=== PATIENT | male | born 1975 | race Caucasian/White ===

== ENCOUNTER 2017-10-23 00:24 | Emergency (ER) | payer BC ==
[~2017-10-23] VITALS: Ht 172.7 cm; Wt 92.0 kg
[~2017-10-23 00:24] MED LIST: BENZ100 PO; HYDR-2768 PO; METO100T PO; PRED20 PO; Z.0.NO CURRENT MEDS
[2017-10-23 00:26] VITALS: BP 137/74; PULSE 96; RESP 16; TEMP 98.3; O2SAT 99
--- NOTE | 2017-10-23 01:07 | RADRPT ---
EXAM DATE/TIME: 10/23/2017 00:56 [facility] COMPARISON: No previous studies available for comparison. INDICATIONS : Cough. MEDICAL HISTORY : None. SURGICAL HISTORY : Kidney transplant. ENCOUNTER: Initial ACUITY: 4 - 6 days PAIN SCORE: 0/10 LOCATION: Bilateral chest FINDINGS: PA and lateral views of the chest demonstrate the lungs to be symmetrically aerated without evidence of mass, infiltrate or effusion. The cardiomediastinal contours are unremarkable. Osseous structure s are intact. CONCLUSION: No acute disease. There is no evidence of pneumonia. Harry Ahn MD on October 23, 2017 at 1:06 Board Certified Radiologist. This report was verified electronically.
[2017-10-23 02:14] LABS: AUTOMATED NEUTROPHIL # 6.5 TH/MM3 (1.8-7.7); BASOPHIL % 0.4 % (0.0-2.0); EOSINOPHIL # 0.1 TH/MM3 (0-0.4); EOSINOPHIL % 1.1 % (0.0-4.0); HEMATOCRIT 41.5 % (39.0-51.0); HEMO FLAGS DIFF FINAL; LYMPH % 11.7 % (9.0-44.0); MEAN CELL VOLUME 85.8 FL (80.0-100.0); MEAN CORPUSCULAR HEMOGLOBIN 28.9 PG (27.0-34.0); MEAN CORPUSCULAR HGB CONC 33.7 % (32.0-36.0); NEUT % 79.8 % (16.0-70.0); PLATELET COUNT 278 TH/MM3 (150-450); RED BLOOD COUNT 4.83 MIL/MM3 (4.50-5.90); RED CELL DISTRIBUTION WIDTH 15.1 % (11.6-17.2); WHITE BLOOD COUNT 8.2 TH/MM3 (4.0-11.0)
[2017-10-23 02:16] LABS: ANION GAP 11 MEQ/L (5-15); AST (GOT) 17 U/L (15-37); BICARBONATE 24.5 MEQ/L (21.0-32.0); BLOOD UREA NITROGEN 20 MG/DL (7-18); CHLORIDE 103 MEQ/L (98-107); GLOMERULAR FILTRATION RATE 80 ML/MIN (>89); POTASSIUM 3.8 MEQ/L (3.5-5.1); SODIUM (NA) 138 MEQ/L (136-145)
[2017-10-23 02:17] LABS: ALT (GPT) 38 U/L (12-78)
[2017-10-23 02:20] LABS: ALKALINE PHOSPHATASE 83 U/L (45-117); TOTAL BILIRUBIN ADULT 0.7 MG/DL (0.2-1.0)
--- NOTE | 2017-10-23 02:49 | PD ---
HPI Chief Complaint: Cold / Flu Symptoms Time Seen by Provider: 00:44 Travel History International Travel<30 days: No Contact w/Intl Traveler<30days: No History of Present Illness HPI Patient is a 42-year-old male, with history of renal transplant, comes in complaining of congestion as well as feeling hot and cold. He says his been going on for the past 4 days. He says he wanted to just come in and make sure you didn't have pneumonia. He is concerned about everything affecting his kidney transplant. He says he is producing urine normally. He says his temperature was 99.5 this evening. He says he cannot take any medications other than Tylenol. He does report compliance with his antirejection medications. [facility] Past Medical History Renal Failure: Yes Past Surgical History Genitourinary Surgery: Yes (DOUBLE KIDNEY TRANSPLANT 2013) Social History Alcohol Use: No Tobacco Use: No Substance Use: No Allergies-Medications (Allergen,Severity, Reaction): Coded Allergies: No Known Allergies (Verified Adverse Reaction, Unknown, 10/23/17) Reported Meds & Prescriptions Reported Meds & Active Scripts Active Review of Systems Except as stated in HPI: all other systems reviewed are Neg General / Constitutional: Positive: Fever, Chills HENT: Positive: Congestion, No: Headaches, Neck Stiffness Cardiovascular: No: Chest Pain or Discomfort Respiratory: Positive: Cough, No: Shortness of Breath Gastrointestinal: No: Nausea, Vomiting Musculoskeletal: No: Myalgias Skin: No Rash, No Change in Pigmentation Neurologic: No: Weakness, Dizziness Physical Exam Narrative GENERAL: Awake and alert, in no acute distress. SKIN: Focused skin assessment warm/dry. HEAD: Atraumatic. Normocephalic. EYES: Pupils equal and round. No scleral icterus. ENT: Mucous membranes pink and moist. NECK: Trachea midline. No JVD. CARDIOVASCULAR: Regular rate and rhythm. No murmur appreciated. RESPIRATORY: No accessory muscle use. Clear to auscultation. Breath sounds equal bilaterally. GASTROINTESTINAL: Abdomen soft, non-tender, nondistended. MUSCULOSKELETAL: No obvious deformities. No clubbing. No cyanosis. No edema. NEUROLOGICAL: Awake and alert. No obvious cranial nerve deficits. Motor grossly within normal limits. Normal speech. PSYCHIATRIC: Appropriate mood and affect; insight and judgment normal. Data Data Last Documented VS Vital Signs Date Time Temp Pulse Resp B/P (MAP) Pulse Ox O2 Delivery O2 Flow Rate FiO2 10/23/17 00:26 98.3 96 16 137/74 (95) 99 Room Air Orders Orders Chest, Pa & Lat (10/23/17 ) Iv Access Insert/Monitor (10/23/17 00:49) Complete Blood Count With Diff (10/23/17 00:49) Comprehensive Metabolic Panel (10/23/17 00:49) Influenzae A/B Antigen (10/23/17 00:49) Group A Rapid Strep Screen (10/23/17 00:49) Strep Culture (Group A) (10/23/17 01:40) Labs Laboratory Tests Test 10/23/17 01:50 White Blood Count 8.2 TH/MM3 Red Blood Count 4.83 MIL/MM3 Hemoglobin 14.0 GM/DL Hematocrit 41.5 % Mean Corpuscular Volume 85.8 FL Mean Corpuscular Hemoglobin 28.9 PG Mean Corpuscular Hemoglobin Concent 33.7 % Red Cell Distribution Width 15.1 % Platelet Count 278 TH/MM3 Mean Platelet Volume 7.1 FL Neutrophils (%) (Auto) 79.8 % Lymphocytes (%) (Auto) 11.7 % Monocytes (%) (Auto) 7.0 % Eosinophils (%) (Auto) 1.1 % Basophils (%) (Auto) 0.4 % Neutrophils # (Auto) 6.5 TH/MM3 Lymphocytes # (Auto) 1.0 TH/MM3 Monocytes # (Auto) 0.6 TH/MM3 Eosinophils # (Auto) 0.1 TH/MM3 Basophils # (Auto) 0.0 TH/MM3 CBC Comment DIFF FINAL Differential Comment Blood Urea Nitrogen 20 MG/DL Creatinine 1.02 MG/DL Random Glucose 88 MG/DL Total Protein 7.9 GM/DL Albumin 4.1 GM/DL Calcium Level 9.5 MG/DL Alkaline Phosphatase 83 U/L Aspartate Amino Transf (AST/SGOT) 17 U/L Alanine Aminotransferase (ALT/SGPT) 38 U/L Total Bilirubin 0.7 MG/DL Sodium Level 138 MEQ/L Potassium Level 3.8 MEQ/L Chloride Level 103 MEQ/L Carbon Dioxide Level 24.5 MEQ/L Anion Gap 11 MEQ/L Estimat Glomerular Filtration Rate 80 ML/MIN MDM Medical Decision Making Medical Screen Exam Complete: Yes Emergency Medical Condition: Yes Medical Record Reviewed: Yes Differential Diagnosis URI versus influenza versus pharyngitis versus pneumonia Narrative Course Patient is a 42-year-old male comes in complaining of congestion and possible fever. He is afebrile here. Exam shows no acute abnormalities. IV established , labs sent. Labs are within normal limits, creatinine is 1.02. Chest x-ray performed shows no evidence of pneumonia. Rapid strep test is negative. Influenza screen is negative. Patient advised of the results. Advised she should speak with his doctor about decongestants he can take for symptomatic relief. Advised follow-up with his doctors. Advised to return to the ED as needed for any worsening symptoms. Diagnosis Primary Impression: URI (upper respiratory infection) Qualified Codes: J06.9 - Acute upper respiratory infection, unspecified; B97.89 - Other viral agents as the cause of diseases classified elsewhere Patient Instructions: General Instructions, Upper Respiratory Infection (ED) Additional Instructions: Follow-up with your doctors. Take Tylenol as needed for fever. Return to the ED as needed for any worsening symptoms. Disposition: 01 DISCHARGE HOME Condition: Stable Hue Riggs MD Oct 23, 2017 02:49
== END 2017-10-23 03:20 | disposition home or self-care (01) ==
LOC: NEPC 00:24
DX: J06.9 Acute upper respiratory infection, unspecified (principal); B97.89 Other viral agents as the cause of diseases classified elsewhere; Z94.0 Kidney transplant status
CPT/HCPCS: 71020; 80053; 85025; 87081; 87804; 87880; 99285

== ENCOUNTER 2017-10-25 18:03 | Emergency (ER) | payer BC ==
[2017-10-25 18:06] VITALS: BP 135/86; PULSE 115; RESP 16; TEMP 99.5; O2SAT 97
--- NOTE | 2017-10-25 19:11 | RADRPT ---
EXAM DATE/TIME: 10/25/2017 19:03 [facility] COMPARISON: CHEST PA & LAT, October 23, 2017, 0:56. INDICATIONS : Congestion. Productive cough. MEDICAL HISTORY : None. SURGICAL HISTORY : None. ENCOUNTER: Initial ACUITY: 4 - 6 days PAIN SCORE: 0/10 LOCATION: Bilateral chest FINDINGS: PA and lateral views of the chest demonstrate the lungs to be symmetrically aerated without evidence of mass, infiltrate or effusion. The cardiomediastinal contours are unremarkable. Osseous structure s are intact. CONCLUSION: No acute disease. Eliazar Collins MD on October 25, 2017 at 19:08 Board Certified Radiologist. This report was verified electronically.
--- NOTE | 2017-10-25 19:19 | PD ---
HPI Chief Complaint: Cold / Flu Symptoms Time Seen by Provider: 18:40 Travel History International Travel<30 days: No Contact w/Intl Traveler<30days: No Traveled to known affect area: No History of Present Illness HPI 42-year-old who presents to the emergency room for evaluation of cough and cold symptoms for the past 6 days. He came to the emergency room 2 days ago for the same. Was discharged with diagnosis of viral syndrome. States since then he seems to be getting way worse. Symptoms include bilateral ear pain, sore throat , cough, congestion. He is status post kidney transplant due to uncontrolled hypertension. Does not have a PCP and did not want to bother his executive talent acquisition consultant so he has not followed up. States since discharge, he has had worsening, productive cough. He has had night sweats but denies any objective fevers. He has associated pleuritic chest pain but denies shortness of breath. PFSH Past Medical History Renal Failure: Yes Past Surgical History Genitourinary Surgery: Yes (DOUBLE KIDNEY TRANSPLANT 2013) Social History Alcohol Use: No Tobacco Use: No Substance Use: No Allergies-Medications (Allergen,Severity, Reaction): Coded Allergies: No Known Allergies (Verified Adverse Reaction, Unknown, 10/23/17) Reported Meds & Prescriptions Reported Meds & Active Scripts Active Ventolin Hfa 18 GM Inh (Albuterol Sulfate) 90 Mcg/Act Aer 2 Puff INH Q6H PRN Levofloxacin 750 Mg Tablet 750 Mg PO DAILY 7 Days Review of Systems Except as stated in HPI: all other systems reviewed are Neg Physical Exam Narrative GENERAL: Well-nourished, well-developed male in no acute distress. Afebrile. Ambulatory. Coughing frequently. SKIN: Focused skin assessment warm/dry. HEAD: Normocephalic. EYES: No scleral icterus. No injection or drainage. NECK: Supple, trachea midline. No JVD or lymphadenopathy. ENT: Mucosa pink and moist. Extreme erythema of the pharynx without edema or exudates. No uvular edema. No uvular, palatal, or tonsillar deviation. Airway patent. Nasal turbinates appear normal without nasal blood, purulent drainage or septal hematoma. EARS: Bilateral pinnae and external canals appear within normal limits. Bilateral tympanic membranes without erythema, dullness or perforation. CARDIOVASCULAR: Regular rate and rhythm without murmurs, gallops, or rubs. RESPIRATORY: Breath sounds equal bilaterally. No accessory muscle use. GASTROINTESTINAL: Abdomen soft, non-tender, nondistended. MUSCULOSKELETAL: No cyanosis, or edema. BACK: Nontender without obvious deformity. No CVA tenderness. Data Data Last Documented VS Vital Signs Date Time Temp Pulse Resp B/P (MAP) Pulse Ox O2 Delivery O2 Flow Rate FiO2 10/25/17 18:06 99.5 115 16 135/86 (102) 97 Room Air Orders Orders Complete Blood Count With Diff (10/25/17 18:46) Comprehensive Metabolic Panel (10/25/17 18:46) Group A Rapid Strep Screen (10/25/17 18:46) Chest, Pa & Lat (10/25/17 ) Iv Access Insert/Monitor (10/25/17 18:46) Strep Culture (Group A) (10/25/17 19:51) Sodium Chlor 0.9% 1000 Ml Inj (Ns 1000 M (10/25/17 20:45) Ed Discharge Order (10/25/17 20:36) Labs Laboratory Tests Test 10/25/17 19:51 White Blood Count 10.7 TH/MM3 Red Blood Count 5.11 MIL/MM3 Hemoglobin 14.2 GM/DL Hematocrit 42.9 % Mean Corpuscular Volume 84.0 FL Mean Corpuscular Hemoglobin 27.9 PG Mean Corpuscular Hemoglobin Concent 33.2 % Red Cell Distribution Width 14.8 % Platelet Count 293 TH/MM3 Mean Platelet Volume 6.9 FL Neutrophils (%) (Auto) 82.6 % Lymphocytes (%) (Auto) 7.7 % Monocytes (%) (Auto) 9.2 % Eosinophils (%) (Auto) 0.1 % Basophils (%) (Auto) 0.4 % Neutrophils # (Auto) 8.8 TH/MM3 Lymphocytes # (Auto) 0.8 TH/MM3 Monocytes # (Auto) 1.0 TH/MM3 Eosinophils # (Auto) 0.0 TH/MM3 Basophils # (Auto) 0.0 TH/MM3 CBC Comment DIFF FINAL Differential Comment Blood Urea Nitrogen 19 MG/DL Creatinine 1.37 MG/DL Random Glucose 102 MG/DL Total Protein 8.7 GM/DL Albumin 4.2 GM/DL Calcium Level 10.0 MG/DL Alkaline Phosphatase 85 U/L Aspartate Amino Transf (AST/SGOT) 20 U/L Alanine Aminotransferase (ALT/SGPT) 27 U/L Total Bilirubin 1.1 MG/DL Sodium Level 133 MEQ/L Potassium Level 3.9 MEQ/L Chloride Level 100 MEQ/L Carbon Dioxide Level 24.4 MEQ/L Anion Gap 9 MEQ/L Estimat Glomerular Filtration Rate 57 ML/MIN MDM Medical Decision Making Medical Screen Exam Complete: Yes Emergency Medical Condition: Yes Medical Record Reviewed: Yes Differential Diagnosis Viral syndrome, upper respiratory infection, influenza, pneumonia Narrative Course 42-year-old male presents to the emergency room for the second time today for evaluation of cough and cold symptoms. Symptoms have been ongoing for 6 days. Reports associated night sweats but denies objective fevers. He is afebrile and well-appearing in the emergency room. Coughing frequently. His exam reveals moderate to severe erythematous pharynx. Tympanic membranes show no evidence of infection. Lung sounds reveal bilateral rhonchi without wheezing. IV access established and basic labs obtained. EKG shows sinus rhythm with rate of [address] changes. Chest x-ray remains unremarkable. CBC is unremarkable. CMP shows evidence of mild dehydration for which patient was given 1 L normal saline. He will be discharged with prescriptions for albuterol and Levaquin. Told to follow up with his primary care physician/ executive talent acquisition consultant or return for worsening symptoms. He understands and agrees to plan. Diagnosis Primary Impression: Acute bronchitis Qualified Codes: J20.9 - Acute bronchitis, unspecified Referrals: [facility] Primary Care Physician Additional Instructions: Levaquin and albuterol as directed. Take antibiotics until gone. Follow-up with executive talent acquisition consultant. Return for worsening symptoms. Scripts Albuterol 18 GM Inh (Ventolin Hfa 18 GM Inh) 90 Mcg/Act Aer 2 PUFF INH Q6H Y for SHORTNESS OF BREATH, #1 INHALER 0 Refills Prov: Ramone Basurto MD 10/25/17 Levofloxacin (Levofloxacin) 750 Mg Tablet 750 MG PO DAILY for Infection for 7 Days, #5 TAB 0 Refills Prov: Ramone Basurto MD 10/25/17 Disposition: 01 DISCHARGE HOME Condition: Stable Leslee Canas Oct 25, 2017 19:19
[2017-10-25 20:05] LABS: AUTOMATED NEUTROPHIL # 8.8 TH/MM3 (1.8-7.7); BASOPHIL % 0.4 % (0.0-2.0); EOSINOPHIL % 0.1 % (0.0-4.0); HEMATOCRIT 42.9 % (39.0-51.0); HEMO FLAGS DIFF FINAL; LYMPH % 7.7 % (9.0-44.0); LYMPHOCYTE # 0.8 TH/MM3 (1.0-4.8); MEAN CORPUSCULAR HEMOGLOBIN 27.9 PG (27.0-34.0); MEAN CORPUSCULAR HGB CONC 33.2 % (32.0-36.0); MONO % 9.2 % (0.0-8.0); NEUT % 82.6 % (16.0-70.0); PLATELET COUNT 293 TH/MM3 (150-450); RED BLOOD COUNT 5.11 MIL/MM3 (4.50-5.90); RED CELL DISTRIBUTION WIDTH 14.8 % (11.6-17.2); WHITE BLOOD COUNT 10.7 TH/MM3 (4.0-11.0)
[2017-10-25 20:27] LABS: ANION GAP 9 MEQ/L (5-15); AST (GOT) 20 U/L (15-37); BICARBONATE 24.4 MEQ/L (21.0-32.0); BLOOD UREA NITROGEN 19 MG/DL (7-18); CHLORIDE 100 MEQ/L (98-107); GLOMERULAR FILTRATION RATE 57 ML/MIN (>89); POTASSIUM 3.9 MEQ/L (3.5-5.1); SODIUM (NA) 133 MEQ/L (136-145)
[2017-10-25 20:30] LABS: ALKALINE PHOSPHATASE 85 U/L (45-117); ALT (GPT) 27 U/L (12-78); TOTAL BILIRUBIN ADULT 1.1 MG/DL (0.2-1.0)
[2017-10-25] MEDS ORDERED: VENTAER INH (20:36)
[2017-10-25] MEDS ORDERED: LEVO750T3 PO (20:36)
[2017-10-25] MEDS ORDERED: SODIUM CHLOR 0.9% 1000 ML INJ 1,000 ML IV ONE (20:45)
[2017-10-25 20:49] VITALS: BP 128/80; PULSE 102; RESP 14; TEMP 99.4; O2SAT 97
[2017-10-25] MEDS ORDERED: ZITHTAB PO (21:35)
--- NOTE | 2017-10-26 05:07 | EKG ---
Date Performed: 10/25/2017 Time Performed: 19:28:13 PTAGE: 42 years EKG: Sinus rhythm NORMAL ECG No significant change from prior electrocardiogram. PREVIOUS TRACING : 03/13/2010 12.48 DOCTOR: Bony Cheng Interpretating Date/Time 10/26/2017 05:06:53
== END 2017-10-25 21:39 | disposition home or self-care (01) ==
LOC: NEPD 18:03
DX: J20.9 Acute bronchitis, unspecified (principal); R61 Generalized hyperhidrosis; E86.0 Dehydration
CPT/HCPCS: 71020; 80053; 85025; 87081; 87880; 93005; 96360; 99285; J7030